=== PATIENT | male | born 1995 | race Caucasian/White ===

== ENCOUNTER 2021-03-27 06:04 | Emergency (ER) | payer MEDICAID ==
[~2021-03-27] VITALS: Ht 172.7 cm; Wt 68.9 kg
[2021-03-27] MEDS ORDERED: ONDANSETRON 2MG/ML, 2ML IVPush ONE (07:00)
[2021-03-27] MEDS ORDERED: SODIUM CHLORIDE FLUSH 10ML SYR IVF ONE (07:00)
[2021-03-27] MEDS ORDERED: SODIUM CHLORIDE 0.9% 1,000ML IVBOLUS ONE (07:00)
[2021-03-27] MEDS ORDERED: THIAMINE 100 MG in SODIUM CHLORIDE 0.9% 50 ML IVPB ONE (07:00)
--- NOTE | 2021-03-27 07:01 | NUR ---
report of pt from latoya reyes and assuming care of pt at this time.
[2021-03-27] MEDS ORDERED: LORazepam 2 MG/ML, 1ML ONE ×2 (07:02→07:41)
[2021-03-27] MEDS ORDERED: ONDANSETRON 2MG/ML, 2ML ONE (07:02)
[2021-03-27] MEDS: LORazepam 2 MG/ML, 1ML IVPush PRN ×4 (07:04→08:10)
[2021-03-27 07:12] LABS: BASOPHILS % (AUTO) 1 % (0-1); EOSINOPHILS % (AUTO) 0 % (1-7); LYMPHOCYTES % (AUTO) 19 % (22-44); MEAN PLATELET VOLUME 8.2 fL (7.4-10.4); MONOCYTES % (AUTO) 5 % (2-9); NEUTROPHILS % (AUTO) 75 % (42-75); PLATELET COUNT 386 x10^3/uL (130-400); RED BLOOD COUNT 5.44 x10^6/uL (4.38-5.82); RED CELL DISTRIBUTION WIDTH 14.5 % (9.4-14.8)
--- NOTE | 2021-03-27 07:17 | NUR ---
PT MEDICATED PER MAR FOR ETOH WITHDRAWAL. PT COMFORTABLE IN [facility] WITH STABLE VS AT THIS TIME. LAB AT BS AT THIS TIME.
[2021-03-27 07:19] LABS: ALANINE AMINOTRANSFERASE 93 U/L (12-78); ALBUMIN 4.7 g/dL (3.4-5.0); ANION GAP 13 mmol/L (5-15); CALCIUM 10.5 mg/dL (8.5-10.1); CHLORIDE 96 mmol/L (98-107); CREATININE 1.11 mg/dL (0.7-1.3)
[2021-03-27 07:21] LABS: ALKALINE PHOSPHATASE 106 U/L (45-117)
--- NOTE | 2021-03-27 07:52 | NUR ---
PT MEDICATED PER DEC FOR NAUSEA/WD SYMPTOMS AT THIS TIME.
--- NOTE | 2021-03-27 08:11 | NUR ---
pt medicated per mar for w/d symptoms. pt calm and cooperative in bed at this time. vss and updated in emr at this time.
--- NOTE | 2021-03-27 10:20 | NUR ---
PT D/C WITH D/C SUMMARY AND SCRIPTS. ALL QUESTIONS ANSWERED. PT IV D/C WITH TIP INTACT. PT VSS AND UPDATED IN EMR. PT PROVIDED A LIST OF RESOURCES FOR ALCOHOL WITHDRAWAL AND VERBALIZES UNDERSTANDING OF NEED FOR F/U OUTPATIENT. ALL QUESTIONS ANSWERED. PT D/C HOME WITH FRIEND FOR SAFE D/C HOME.
[2021-03-27 10:21] VITALS: BP 144/90
== END 2021-03-27 10:25 | disposition home or self-care (01) ==
LOC: ED 08:36
DX: F10.139 Alcohol abuse with withdrawal, unspecified (principal); F10.129 Alcohol abuse with intoxication, unspecified; R00.0 Tachycardia, unspecified; R11.2 Nausea with vomiting, unspecified; Y90.0 Blood alcohol level of less than 20 mg/100 ml
CPT/HCPCS: 36415; 80053; 80320; 82140; 83605; 85025; 96365; 96375; 96376; 99284; J2060; J2405; J3411; J7030; G0480